=== PATIENT | female | born 1990 | race African-American/Black ===

== ENCOUNTER 2017-12-27 12:40 | Emergency (ER) | payer OTHER ==
[~2017-12-27] VITALS: Ht 162.6 cm; Wt 61.2 kg
--- NOTE | ~2017-12-27 | EKG ---
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
[~2017-12-27 12:40] MED LIST: CIPROFLOXACIN500 M1 PO; FIORICET 50-321 EACH PO; NOHOMEMEDICATIONS; PHENERGAN 25 MG25 M1 PO; PREDNISONE 10 M10 M1; PREDNISONE 20 M20 M1 PO; ZYRTEC 10 MG TA10 MG PO
[2017-12-27 12:45] VITALS: BP 137/89
[2017-12-27] MEDS ORDERED: FLEXERIL PO (12:47)
[2017-12-27] MEDS ORDERED: NAPROSYN500 MG PO (12:47)
[2017-12-27] MEDS ORDERED: NORCO 5-325 TA1 EACH PO (13:07)
[2017-12-27] MEDS ORDERED: MEDROLDOSEPACK PO (13:07)
== END 2017-12-27 13:38 | disposition home or self-care (01) ==
LOC: ER 12:40
DX: S29.012A Strain of muscle and tendon of back wall of thorax, initial encounter (principal); G43.909 Migraine, unspecified, not intractable, without status migrainosus; R25.1 Tremor, unspecified; X58.XXXA Exposure to other specified factors, initial encounter; Y92.89 Other specified places as the place of occurrence of the external cause; Y93.89 Activity, other specified; Y99.8 Other external cause status